=== PATIENT | male | born 1945 | race Caucasian/White ===

== ENCOUNTER 2017-01-02 06:17 | Day surgery (SDC) | payer MEDICARE ==
[~2017-01-02] VITALS: Ht 175.3 cm; Wt 74.1 kg
[~2017-01-02 06:17] MED LIST: ATEN-102 PO; CHLO25TA5 PO; DIGO.25 PO; DULO30 PO; ECOT81TA2 PO; FEED1MIS9; FLUT50SP EACH NARE; LORA-474 PO; SIMV20 PO; Z.0.WHEELSTD
[2017-01-02 06:45] VITALS: BP 160/102; PULSE 85; RESP 20; TEMP 97.7; O2SAT 97
[2017-01-02] MEDS ORDERED: ceFAZolin 2 GM PREMIX 50 ML - implanted port removal IV SCH (06:45)
[2017-01-02] MEDS ORDERED: SODIUM CHLORIDE 0.9% 1000 ML IV SCH (06:45)
[2017-01-02] MEDS ORDERED: ASPI81CH CHEW (06:52)
[2017-01-02] MEDS ORDERED: ATEN50TA PO (06:52)
[2017-01-02] MEDS ORDERED: LORA-474 PO (06:52)
[2017-01-02] MEDS ORDERED: SIMV20TA PO (06:52)
--- NOTE | 2017-01-02 08:42 | PD.RAD ---
Post Procedure Progress Note Pre Procedure Diagnosis: (1) Oropharyngeal cancer Post Procedure Diagnosis: (1) Oropharyngeal cancer Procedure Date: Jan 02, 2017 Supervising Radiologist: Jason Pena Proceduralist/Assist: RT Thomas(R), RT Jana(R) Anesthesia: Local, Analgesia Plan of Activity Patient to Unit: [facility] Patient Condition: Good See PACS Report for procedural detail/treatment Feeding Tube Gastrostomy Removal Georgian: 18 Central Venous Access Device Procedure 1 Right Internal Jugular Infusaport Removal single lumen Georgian: 8 Jason Pena MD Jan 02, 2017 08:42
[2017-01-02 08:55] VITALS: BP 145/87; PULSE 79; RESP 18; TEMP 97.4; O2SAT 93
[2017-01-02 09:10] VITALS: BP_SYST 120; BP_SYST 129; BP_DIAS 70; BP_DIAS 79; PULSE 67; RESP 18; O2SAT 90
[2017-01-02 09:40] VITALS: BP 120/70; PULSE 60; RESP 16; O2SAT 90
[2017-01-02 10:10] VITALS: BP 108/69; PULSE 69; RESP 16; O2SAT 94
--- NOTE | 2017-01-02 15:23 | RADRPT ---
EXAM DATE/TIME: 01/02/2017 00:00 [facility] COMPARISON: No previous studies available for comparison. 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 MEDICAL HISTORY : Arthritis HLD HTN Kidney Stones PTSD SURGICAL HISTORY : Left AKA Left Thumb Amputation Tonsilectomy ENCOUNTER: Subsequent ACUITY: 7-11 months PAIN SCORE: 0/10 0 minutes 1.) 0 mg midazolam (Versed) IV 2.) 75 mcg fentanyl (Sublimaze) IV Prophylactic antibiotics were administered with appropriate pre-procedure timing. Vancomycin within 2 hrs of procedure, Ancef (or alternative) within 1 hr of procedure. PROCEDURE : 1. Removal of [id number]-h-[id number]. 2. Conscious sedation with continuous EKG and oximetry monitoring. The risk, benefits and potential complications of [id number]-[id number] removal were discussed. Written conse nt was obtained. The patient was placed supine. The chest wall was prepped in sterile fashion. Full sterile techniqu e was used, including cap, mask, sterile gloves and gown, and a large sterile sheet. Hand hygiene an d 2% chlorhexidine and/or Betadine/alcohol prep was utilized per protocol for cutaneous antisepsis. The skin and subcutaneous tissues were infiltrated with local anesthetic solution. A small incision w as made, the subcutaneous pocket was opened. The port was dissected from the subcutaneous tissues and easily removed in one piece. The pocket incision was closed with subcuticular Vicryl suture. Steri -Strips were applied. Conscious sedation was performed with the prescribed dosages and duration as above in the presence of an independent trained radiology nurse to assist in the monitoring of the patient. EKG and oximetry remained stable throughout the procedure. The patient tolerated the procedure well and there were no complications. The patient was sent to post anesthesia recovery in stable condition. CONCLUSION: Uncomplicated port removal as above. Jason Pena MD on January 02, 2017 at 15:21 Board Certified Radiologist. This report was verified electronically.
--- NOTE | 2017-01-02 15:26 | RADRPT ---
EXAM DATE/TIME: 01/02/2017 00:00 [facility] COMPARISON: No previous studies available for comparison. INDICATIONS : Patient is in remission of Squamous cell carcinoma and no longer in need of gastrostomy tube. MEDICAL HISTORY : SCC of the base of the tongue, on chemo and XRT HTN Hyperlipidemia Hx of colon polyps SURGICAL HISTORY : Tonsillectomy and tongue biopsy in 07/2015 [facility]IF of distal radius fracture ENCOUNTER: Subsequent ACUITY: 4-6 months PAIN SCORE: 0/10 IMAGE SERIES: 0 PROCEDURE : 1. removal gastrostomy tube 2. Conscious sedation with continuous EKG and Oximetry monitoring. The risks, benefits and alternatives to the procedure were explained and verbal and written consent w as obtained. The site was prepped in sterile fashion. Gastrostomy tube was removed without difficul ty. This was done in conjunction with Upjcdm-x-Muvk removal. Conscious sedation was performed with the prescribed dosages and duration as above in the presence of an independent trained radiology nurse to assist in the monitoring of the patient. EKG and oximetry remained stable throughout the procedure. CONCLUSION: Gastrostomy tube removal Jason Pena MD on January 02, 2017 at 15:21 Board Certified Radiologist. This report was verified electronically.
== END 2017-01-02 10:20 | disposition home or self-care (01) ==
LOC: HROP 06:17 → HRIP 06:26 → HROP 10:20
PROVIDERS: ATTEND Internal Medicine Hematology & Oncology
DX: Z85.810 Personal history of malignant neoplasm of tongue (principal); I10 Essential (primary) hypertension; E78.5 Hyperlipidemia, unspecified; F43.10 Post-traumatic stress disorder, unspecified; M19.90 Unspecified osteoarthritis, unspecified site; Z89.612 Acquired absence of left leg above knee
CPT/HCPCS: 36590; 99152; 99153; G0463; J0690; J3010; J7030; 99213